=== PATIENT | male | born 1995 ===

== ENCOUNTER 2024-12-15 09:39 | Emergency (ER) | payer MEDICAID, SELFPAY ==
--- NOTE | ~2024-12-15 | US_ITS ---
CLINICAL HISTORY: RUQ pain US abdomen limited with color Doppler Comparison: None Findings: Visualized pancreas is normal. Tail obscured by bowel gas. Liver is normal in size and diffusely echogenic. Right lobe length 16.7 cm. No focal hepatic masses. Common duct 5.8 mm diameter. Gallbladder is physiologically distended. No gallstones, sludge or wall abnormalities. No gallbladder wall thickening. No pericholecystic fluid. No sonographic Naik sign. Right kidney measures, 10.3 cm in length. Normal cortical width and echotexture. No hydronephrosis calculus or mass. Impression: 1. Normal gallbladder. 2. Echogenic liver reflecting hepatic steatosis or diffuse hepatocellular disease. 3. Bowel gas obscures midline structures. This document has been electronically signed by: Cristiano العلي MD on 12/15/2024 12:19:56
[2024-12-15 09:46] VITALS: BP 138/85; PULSE 75; RESP 18; TEMP 36.8; O2SAT 100; BMI 35.3
[2024-12-15 10:03] LABS: MANUAL DIFF FLAG NO
[2024-12-15 10:04] LABS: Basophils Absolute Auto 0.1 X10*3/uL (0.0-0.2); Basophils Percent Auto 0.9 % (0-2); Eosinophils Absolute Auto 0.7 X10*3/uL (0.0-0.4); Eosinophils Percent Auto 7.4 % (0-4); Hematocrit 43.8 % (42.0-52.0); Hemoglobin 15.2 g/dl (14.0-18.0); Imm Gran Abs Auto 0.03 X10*3/uL (0.00-0.03); Imm Gran Pct Auto 0.3 % (0.0-0.4); Lymphocytes Absolute Auto 2.5 X10*3/uL (1.2-4.9); Lymphocytes Percent Auto 26.9 % (20-40); Mean Corpuscular HGB Conc 34.7 g/dl (31.0-36.0); Mean Corpuscular Hemoglobin 28.6 pg (27.0-33.0); Mean Corpuscular Volume 82.5 fL (80.0-98.0); Mean Platelet Volume 9.3 fL (9.4-12.4); Monocytes Absolute Auto 0.5 X10*3/uL (0.1-1.2); Monocytes Percent Auto 5.7 % (2-11); Neutrophils Absolute Auto 5.5 x10*3/uL (2.0-8.3); Neutrophils Percent Auto 58.8 % (45-73); Platelet Count 295 X10*3/uL (160-400); Red Blood Count 5.31 X10*6/uL (4.60-5.80); Red Cell Distribution Width 13.2 % (11.0-16.0); White Blood Count 9.4 X10*3/uL (4.8-10.8)
[2024-12-15 10:05] LABS: Appearance Urine Clear; Color Urine Yellow; Glucose Urine UA 100 mg/dL (Negative); Leukocyte Esterase Urine Negative (Negative); Nitrite Urine Negative (Negative); PH 6.5 (5.0-9.0); Specific Gravity - Urine 1.025 (1.005-1.025); Urine Blood Negative (Negative); Urine Ketones Negative (Negative); Urine Protein Negative (Neg-Trace)
[2024-12-15 10:25] LABS: Alanine Aminotransferase 108 U/L (0-40); Albumin Level 4.2 g/dL (3.5-5.0); Alkaline Phosphatase 66 U/L (39-117); Anion Gap 13 (12-20); Bilirubin Total 0.6 mg/dL (0.0-1.0); Blood Urea Nitrogen 14 mg/dL (9-16); Calcium 9.3 mg/dL (8.4-10.2); Carbon Dioxide 23 mmol/L (22-29); Chloride 106 mmol/L (96-108); Creatinine Clr Calc Pharmacy 127.3; Estimated Glomerular Filt Rate > 60; Glucose Random 138 mg/dL (60-115); Lipase 27 U/L (8-78); Potassium 3.9 mmol/L (3.3-5.1); Sodium 138 mmol/L (135-145); Total Protein 8.4 g/dL (6.5-8.0)
[2024-12-15 10:43] LABS: Aspartate Amino Transferase 43 U/L (5-37)
--- NOTE | 2024-12-15 11:30 | ED.ABDPAIN ---
HPI - Abdominal Pain General Chief Complaint: Abdominal Pain Stated Complaint: abd pain Time Seen by Provider: 12/15/24 11:29 Source: patient Mode of arrival: ambulatory Limitations: no limitations History of Present Illness ED Provider: Dafne Mcgovern PA-C HPI narrative: 29 yo male presents to the ER for evaluation of acute on chronic right sided abdominal pain. He states he has had intermittent RUQ pain for the last 8 months, on and off. He states for the last 1 week the pain has been increasing and persistent. At times it is 10/10. It is worse when he eats. He has had a couple episodes of vomiting in the last 1 week, no diarrhea. No urinary symptoms, no blood in his urine. MD elicited complaint: abdominal pain Pertinent past history: none Onset (ago): week(s) (1) Pain Consistency: constant Location: RUQ Severity: severe Pain scale (0-10): 9 Quality: stabbing Radiation: none Migration to: no migration Exacerbating factors: eating Relieving factors: nothing Context: history of similar episodes Associated symptoms: nausea and vomiting Related Data Previous Rx's ?Medication ?Instructions ?Recorded ondansetron 4 mg disintegrating 4 mg PO Q8H PRN nausea and 12/15/24 tablet vomiting #7 tabs oxycodone 5 mg tablet 5 mg PO Q8H PRN severe pain (scale 12/15/24 score 7-10) #5 tabs Allergies Allergy/AdvReac Type Severity Reaction Status Date / Time No Known Allergies Allergy Verified 12/15/24 09:48 Review of Systems Review of Systems Yes all other systems are reviewed and are negative Physical Exam ED Vital Signs: Vital Signs - 24 hr 12/15/24 09:46 12/15/24 13:30 Temperature 98.3 F 98.3 F Pulse Rate 75 75 Respiratory Rate 18 18 Blood Pressure 138/85 138/85 Pulse Oximetry 100 100 Oxygen Delivery Method Room Air Room Air BMI result Body Mass Index 35.3 Appearance: Alert. Oriented X3. No acute distress. Head: normocephalic, atraumatic. Eyes: Pupils equal, round and reactive to light. ENT: Pharynx normal. No tonsillar swelling or exudate. Neck: Normal inspection. Neck supple. CVS: Normal heart rate and rhythm. Pulses normal. Respiratory: No respiratory distress. Breath sounds normal. Abdomen: Soft, right upper quadrant tender to deep palpation, no rebound or guarding, normal active+BS x4 Skin: Skin warm and dry. Normal skin color. Normal skin turgor. No rashes. Extremities: No lower extremity edema. No joint swelling. Neuro/psych: Oriented X 3. grossly normal, nonfocal. CN II-XII intact. Normal speech and cognition. Medical Decision Making Medical Decision Making [facility] Narrative: 29 yo male presenting with acute on chronic RUQ pain, more constant and severe for the last week. worse after eating high suspicion for gallbladder etiology. no fevers or leukocytosis to suggest acute infection such as ascending cholangitis or acute cholecystitis LFTs are mildly elevated with a normal ALP, biliary obstruction less likely. lipase normal. RUQ US showing GB distention without stones, fluid or sludge, no wall thickening patient treated with oxycodone and zofran with near resolution of his pain etiology most likely biliary colic, he admits to poor diet with a lot fo greasy foods and cheese advised dietary changes, pain control, gen surgery follow up for evaluation of possible outpatient cholecystectomy Differential Diagnosis Differential Diagnoses: The differential diagnosis associated with the presentation includes Acute cholecystitis, biliary colic, ascending cholangitis, pancreatitis, pyelonephritis, musculoskeletal pain, indigestion Admission/Observation Consideration of admission/observation: Escalation of care including admission/observation considered Lab Data [facility] Lab Attestation statement: I reviewed the patient's lab results. Mildly elevated transaminases with normal alk-phos, normal lipase, no leukocytosis 12/15/24 09:58 12/15/24 09:58 Labs: Lab Results 12/15/24 Range/Units 09:58 WBC 9.4 (4.8-10.8) X10*3/uL RBC 5.31 (4.60-5.80) X10*6/uL Hgb 15.2 (14.0-18.0) g/dl Hct 43.8 (42.0-52.0) % MCV 82.5 (80.0-98.0) fL MCH 28.6 (27.0-33.0) pg MCHC 34.7 (31.0-36.0) g/dl RDW 13.2 (11.0-16.0) % Plt Count 295 (160-400) X10*3/uL MPV 9.3 L (9.4-12.4) fL Immature Gran % (Auto) 0.3 (0.0-0.4) % Neut % (Auto) 58.8 (45-73) % Lymph % (Auto) 26.9 (20-40) % Holmes % (Auto) 5.7 (2-11) % Eos % (Auto) 7.4 H (0-4) % Baso % (Auto) 0.9 (0-2) % Lymph # (Auto) 2.5 (1.2-4.9) X10*3/uL Holmes # (Auto) 0.5 (0.1-1.2) X10*3/uL Eos # (Auto) 0.7 H (0.0-0.4) X10*3/uL Baso # (Auto) 0.1 (0.0-0.2) X10*3/uL Abs Immat Gran (auto) 0.03 (0.00-0.03) X10*3/uL Absolute Neuts (auto) 5.5 (2.0-8.3) x10*3/uL Absolute Nucleated RBC 0.000 (0.0-0.012) X10*3/uL Nucleated RBC % (auto) 0.0 (0.0-0.2) /100WBC Sodium 138 (135-145) mmol/L Potassium 3.9 (3.3-5.1) mmol/L Chloride 106 (96-108) mmol/L Carbon Dioxide 23 (22-29) mmol/L Anion Gap 13 (12-20) BUN 14 (9-16) mg/dL Creatinine 0.96 (0.5-1.4) mg/dL Estim Creat Clear Calc 127.3 Estimated GFR > 60 Random Glucose 138 H (60-115) mg/dL Calcium 9.3 (8.4-10.2) mg/dL Total Bilirubin 0.6 (0.0-1.0) mg/dL AST 43 H (5-37) U/L ALT 108 H (0-40) U/L Alkaline Phosphatase 66 (39-117) U/L Total Protein 8.4 H (6.5-8.0) g/dL Albumin 4.2 (3.5-5.0) g/dL Lipase 27 (8-78) U/L Urine Color Yellow Urine Appearance Clear Urine pH 6.5 (5.0-9.0) Ur Specific [place] 1.025 (1.005-1.025) Urine Protein Negative (Neg-Trace) mg/dL Urine Glucose (UA) 100 H (Negative) mg/dL Urine Ketones Negative (Negative) mg/dL Urine Blood Negative (Negative) Urine Nitrite Negative (Negative) Ur Leukocyte Esterase Negative (Negative) Independent Interpretation I performed an independent interpretation of an: Ultrasound Interpretation: No gallstones seen Radiology Impression Discussion of test interpretation with radiology: I have reviewed the radiologist's reading. Independent Historian Clinical information obtained from an independent historian. History obtained from or confirmed by: Spouse Tests considered The following testing was considered but not selected: CT scan of the abdomen was considered however ultrasound is the preferred modality of imaging when biliary etiology is the primary concern Prescription Management I considered prescription management with: Pain Medication and Antibiotic Chronic Conditions Patient?s care impacted by: Other (Obesity) Medications Administered Discontinued Medications Generic Name Dose Route Start Last Admin Trade Name Freq PRN Reason Stop Dose Admin Ondansetron HCl 4 mg 12/15/24 11:42 12/15/24 12:02 Ondansetron Odt 4 Mg Tab.Rapdis TRANSLINGU 12/15/24 11:43 4 mg ONCE ONE Administration Oxycodone HCl 5 mg 12/15/24 11:42 12/15/24 12:02 Oxycodone Hcl Immed Release 5 Mg Tablet PO 12/15/24 11:43 5 mg ONCE ONE Administration Critical Care Time Critical Care Time Critical Care Time: No Discharge Plan Discharge Clinical Impression: Biliary colic Patient Disposition: Home, Self-Care Instructions: Biliary Colic (ED) Additional Instructions: Recommend cutting out all greasy, fatty foods, cut back on dairy high in fat such as cheese. Eat 4 to 6 small meals and snacks each day instead of three large meals. Choose skim or low-fat milk, yogurt, cheese, other milk products, or fortified soy beverage. Choose lean meats. Cut off all fat you can see.Eat poultry, like chicken, duck, and turkey without the skin.Many types of fish, such as salmon, grant trout, tuna, and jernigan, provide healthy omega-3 fat. But, avoid fish canned in oil, such as sardines in olive oil.Bake, broil, or grill meats, poultry, or fish instead of frying them in butter or fat. Eat a variety of vegetables and fruits. These are high in nutrition and low in fat. Take the prescribed medications as directed. Recommend a clear liquid diet for the weekend, slowly advance as tolerated. Recommend following up with General surgery for evaluation of an outpatient gallbladder removal surgery. If you develop new or worsening symptoms call 911 or come back to the ER for further evaluation. Prescriptions: New ondansetron 4 mg tablet,disintegrating 4 mg PO Q8H PRN (Reason: nausea and vomiting) Qty: 7 0RF oxycodone 5 mg tablet 5 mg PO Q8H PRN (Reason: severe pain (scale score 7-10)) Qty: 5 0RF Rx Instructions: Partial Fill upon patient request. Referrals: [facility] General Surgeons [Provider Group] Interventions: ED Discharge Assessment Last Done: 12/15/24 13:30 Discharge Date/Time: 12/15/24 13:55 Print Language: Mauritanian
[2024-12-15] MEDS: oxyCODONE HCl Immed Release 5 MG TABLET PO (12:02)
[2024-12-15] MEDS: Ondansetron ODT 4 MG TAB.RAPDIS TRANSLINGU (12:02)
[2024-12-15 13:30] VITALS: BP 138/85; PULSE 75; RESP 18; TEMP 36.8; O2SAT 100
== END 2024-12-15 13:55 | disposition home or self-care (01) ==
PROVIDERS: Emergency Provider Emergency Medicine
DX: K80.50 Calculus of bile duct without cholangitis or cholecystitis without obstruction (principal); R10.11 Right upper quadrant pain; R11.2 Nausea with vomiting, unspecified
CPT/HCPCS: 36415; 76705; 80053; 81003; 83690; 85025; 99284

== ENCOUNTER → 2024-12-15 11:35 | Outpatient (BNV) | payer MEDICAID, SELFPAY | PROVIDERS: Emergency Provider Emergency Medicine; Visit Provider Radiology Diagnostic Radiology | DX: R10.811 Right upper quadrant abdominal tenderness (principal); K76.0 Fatty (change of) liver, not elsewhere classified | CPT/HCPCS: 76705 ==

== ENCOUNTER 2024-12-25 05:01 | Emergency (ER) | payer MEDICAID, OTHER, SELFPAY ==
--- NOTE | ~2024-12-25 | CT_ITS ---
EXAMINATION: CT ABDOMEN PELVIS WITH IV CONTRAST HISTORY: right mid abd tenderness COMPARISON: There are no prior studies for comparison. TECHNIQUE: CT scan of the abdomen and pelvis was performed following administration of 85 mL Omnipaque 350 using standard departmental protocol. Coronal and sagittal reformatted images were generated and reviewed. Oral contrast material was not administered at the request of the referring physician. This CT exam was performed with one or more of the following dose reduction techniques: automated exposure control, adjustment of the mA and/or kV according to patient size, use of iterative reconstruction technique. DLP: 797 mGy-cm FINDINGS: LOWER CHEST: The visualized lung bases are clear. There is no pleural effusion. CARDIOVASCULATURE: The heart is normal in size. There is no pericardial effusion. LIVER: The liver is normal in size and contour. The liver demonstrates diffusely decreased attenuation, consistent with steatosis. The hepatic and portal veins are patent. GALLBLADDER / BILE DUCTS: The gallbladder is unremarkable. There is no intra or extrahepatic biliary ductal dilatation. SPLEEN: The spleen is normal in size. No focal splenic lesion is identified. PANCREAS: The pancreas is unremarkable in appearance. ADRENAL GLANDS: Within normal limits. KIDNEYS/RETROPERITONEUM: No renal calculi are identified. There is no hydronephrosis. No renal masses are identified. LYMPH NODES: No abdominal or pelvic lymphadenopathy. VASCULATURE: The abdominal aorta is normal in caliber. MESENTERY/PERITONEUM: No free fluid. No masses. There is no free intraperitoneal gas. STOMACH: The stomach is collapsed, limiting evaluation. SMALL BOWEL: The small bowel is normal in caliber. COLON: The colon is unremarkable. APPENDIX: Normal. URINARY BLADDER/PELVIC ORGANS: The urinary bladder is unremarkable. The prostate is normal in size. BONES / SOFT TISSUES: No suspicious bony or soft tissue abnormalities. CT/CT abdomen pelvis w IV con IMPRESSION: Hepatic steatosis. Otherwise unremarkable contrast-enhanced CT of the abdomen and pelvis. Electronically signed by: León Ford MD 12/25/2024 09:25 AM EDT
[2024-12-25 05:06] VITALS: BP 135/85; PULSE 75; RESP 16; TEMP 36.6; O2SAT 100; BMI 27.8
[2024-12-25 05:24] LABS: Basophils Absolute Auto 0.1 X10*3/uL (0.0-0.2); Basophils Percent Auto 1.2 % (0-2); Eosinophils Absolute Auto 1.2 X10*3/uL (0.0-0.4); Eosinophils Percent Auto 12.2 % (0-4); Imm Gran Abs Auto 0.02 X10*3/uL (0.00-0.03); Imm Gran Pct Auto 0.2 % (0.0-0.4); Lymphocytes Absolute Auto 3.5 X10*3/uL (1.2-4.9); Lymphocytes Percent Auto 35.1 % (20-40); MANUAL DIFF FLAG NO; Mean Corpuscular HGB Conc 34.9 g/dl (31.0-36.0); Mean Corpuscular Hemoglobin 29.1 pg (27.0-33.0); Mean Corpuscular Volume 83.5 fL (80.0-98.0); Mean Platelet Volume 9.4 fL (9.4-12.4); Monocytes Absolute Auto 0.8 X10*3/uL (0.1-1.2); Monocytes Percent Auto 7.6 % (2-11); Neutrophils Absolute Auto 4.4 x10*3/uL (2.0-8.3); Neutrophils Percent Auto 43.7 % (45-73); Platelet Count 291 X10*3/uL (160-400); Red Blood Count 5.15 X10*6/uL (4.60-5.80); Red Cell Distribution Width 13.1 % (11.0-16.0); White Blood Count 10.1 X10*3/uL (4.8-10.8)
[2024-12-25 05:52] LABS: Alanine Aminotransferase 56 U/L (0-40); Albumin Level 4.1 g/dL (3.5-5.0); Alkaline Phosphatase 65 U/L (39-117); Anion Gap 12 (12-20); Aspartate Amino Transferase 27 U/L (5-37); Bilirubin Direct < 0.2 mg/dL (0.0-0.5); Bilirubin Total 0.2 mg/dL (0.0-1.0); Blood Urea Nitrogen 13 mg/dL (9-16); Calcium 8.9 mg/dL (8.4-10.2); Carbon Dioxide 23 mmol/L (22-29); Chloride 109 mmol/L (96-108); Creatinine Clr Calc Pharmacy 145.6; Estimated Glomerular Filt Rate > 60; Glucose Random 110 mg/dL (60-115); Lipase 24 U/L (8-78); Potassium 4.1 mmol/L (3.3-5.1); Sodium 140 mmol/L (135-145); Total Protein 7.8 g/dL (6.5-8.0)
--- NOTE | 2024-12-25 08:00 | ED.GENADULT ---
HPI - General Adult General Chief complaint: Abdominal Pain Stated complaint: abd pain Time Seen by Provider: 12/25/24 07:59 Source: patient, RN notes reviewed, old records reviewed and certified court interpreter Mode of arrival: ambulatory Limitations: language barrier History of Present Illness ED Provider: Monalisa [facility] narrative: Patient is a 29-year-old Slovak speaking male presenting with complaint of right mid abdominal pain which has been ongoing intermittently for the past 8 months, but recently worsened over the past few weeks. He was seen in this ED on 12/15 for same complaint, diagnosed with biliary colic. States symptoms have not changed at all since discharge home. Pain is worse after eating. Denies fevers, nausea, vomiting, diarrhea. Has not had any follow up since last ED visit. MD complaint: abdominal pain Onset (ago): month(s) Location: abdomen Radiation: non-radiation Severity: severe Quality: sharp Pain Consistency: intermittent Exacerbating factors: eating Treatments prior to arrival: other Related Data Previous Rx's ?Medication ?Instructions ?Recorded ondansetron 4 mg disintegrating 4 mg PO Q8H PRN nausea and 12/15/24 tablet vomiting #7 tabs oxycodone 5 mg tablet 5 mg PO Q8H PRN severe pain (scale 12/15/24 score 7-10) #5 tabs naproxen 500 mg tablet 500 mg PO BID #28 tabs 12/25/24 Allergies Allergy/AdvReac Type Severity Reaction Status Date / Time No Known Allergies Allergy Verified 12/25/24 05:07 Review of Systems Review of Systems: As per HPI Yes all other systems are reviewed and are negative Constitutional: Constitutional: Reports as per HPI [facility] Social History Social History Smoked in Last 30 Days: No Use of substances other than those prescribed or required for medical reasons: No Advance Directives: No Advance Directives Information Provided: No Do you have a plan to hurt others: No Plan Physical Exam ED Vital Signs: Vital Signs - 24 hr 12/25/24 05:06 12/25/24 08:33 12/25/24 08:34 Temperature 97.8 F 98.6 F Pulse Rate 75 60 Respiratory Rate 16 18 Blood Pressure 135/85 133/92 H 133/92 H Pulse Oximetry 100 98 Oxygen Delivery Method Room Air Room Air BMI result Body Mass Index 27.8 Vital signs have been reviewed and appear to be correct. Blood pressure normal. Heart rate normal. Respiratory rate normal. Temperature normal. Oxygen saturation normal. Const General: cooperative, healthy appearing and no acute distress Orientation/consciousness: oriented to person, oriented to place, oriented to time and patient oriented x3 Limitations: no limitations HENTX Head: Yes normocephalic and Yes atraumatic Ears: external ears normal General nose exam: Normal external nose present Face and sinus: Yes face symmetric Mouth: oropharynx normal and moist mucous membranes Throat: Yes uvula midline Eyes Pupils: Equal, round and reactive pupils present Neck Neck: Yes normal visual inspection and Yes supple Resp Effort & Inspection: normal respiratory effort and able to speak in complete sentences Auscultation: clear to auscultation bilaterally Cardio Rate: regular rate Rhythm: regular rhythm Heart sounds: S1 normal heart sound present and S2 normal heart sound present GI Palpation (GI): Soft to palpation and Tenderness to palpation present (GI) (right mid abdomen tenderness) Naik's sign negative Auscultation: normoactive bowel sounds General: Yes no CVA tenderness Back/Spine/Pelvis Back: no CVA tenderness Skin General skin exam: elasticity normal and turgor normal Neuro General: oriented to person, oriented to place, oriented to time, patient oriented x3, moves all extremities, no focal motor deficits and CN's II-XI intact bilaterally Cranial nerves: Yes Equal, round and reactive pupils present Cognition (Neuro): normal cognition Extrem General: Yes full ROM, Yes no pedal edema and Yes no calf tenderness Psych Mental Status: mental status grossly normal Affect: normal affect Thought process: Normal thought process present Medications Administered Discontinued Medications Generic Name Dose Route Start Last Admin Trade Name Raven PRN Reason Stop Dose Admin Iohexol 100 ml 12/25/24 09:11 12/25/24 09:11 Iohexol 350 Mg/Ml 100 Ml Infus..Btl IV 12/25/24 09:12 85 ml ONCE ONE Administration Morphine Sulfate 4 mg 12/25/24 08:14 12/25/24 08:32 Morphine Sulfate 4 Mg/Ml Cartridge IVPUSH 12/25/24 08:15 4 mg ONCE ONE Administration Protocol Ondansetron HCl 4 mg 12/25/24 08:14 12/25/24 08:32 Ondansetron Hcl 4 Mg/2 Ml Vial IVPUSH 12/25/24 08:15 4 mg ONCE ONE Administration Medical Decision Making Medical Decision Making MDM Narrative: Patient is a 29-year-old Slovak speaking male presenting with complaint of right mid abdominal pain which has been ongoing intermittently for the past 8 months, but recently worsened over the past few weeks. On exam patient is awake, A+Ox3, VS WNL, afebrile, normal neurological exam without focal deficits, physical exam findings as above. Given reported symptoms and physical exam findings, initial differential includes but is not limited to biliary colic, diverticulitis, gastritis. Less likely appendicitis, cholecystitis. Labs notable for no leukocytosis, arthur elevated ALT, improved from most recent visit. CT A/P notable for hepatic steatosis, no acute abnormalities to explain patient's pain. My interpretation is in agreement with the radiologist's interpretation. Results discussed with patient and all questions answered. Will refer to GI for further evaluation. Will send prescription for naproxen. Return precautions discussed at bedside. Patient verbalized understanding of and agreement with plan. In-person certified court interpreter was utilized for all interactions, assessments, and discussions. Differential Diagnosis Differential Diagnoses: The differential diagnosis associated with the presentation includes As per [facility]. Admission/Observation Consideration of admission/observation: Escalation of care including admission/observation considered Patient would have been admitted to the hospital had their work up had any findings where hospital admission was appropriate and their clinical presentation warranted hospital admission. Lab Data [facility] Lab Attestation statement: I reviewed the patient's lab results. As per [facility] 12/25/24 05:18 12/25/24 05:18 Labs: Lab Results 12/25/24 Range/Units 05:18 WBC 10.1 (4.8-10.8) X10*3/uL RBC 5.15 (4.60-5.80) X10*6/uL Hgb 15.0 (14.0-18.0) g/dl Hct 43.0 (42.0-52.0) % MCV 83.5 (80.0-98.0) fL MCH 29.1 (27.0-33.0) pg MCHC 34.9 (31.0-36.0) g/dl RDW 13.1 (11.0-16.0) % Plt Count 291 (160-400) X10*3/uL MPV 9.4 (9.4-12.4) fL Immature Gran % (Auto) 0.2 (0.0-0.4) % Neut % (Auto) 43.7 L (45-73) % Lymph % (Auto) 35.1 (20-40) % Wright % (Auto) 7.6 (2-11) % Eos % (Auto) 12.2 H (0-4) % Baso % (Auto) 1.2 (0-2) % Lymph # (Auto) 3.5 (1.2-4.9) X10*3/uL Wright # (Auto) 0.8 (0.1-1.2) X10*3/uL Eos # (Auto) 1.2 H (0.0-0.4) X10*3/uL Baso # (Auto) 0.1 (0.0-0.2) X10*3/uL Abs Immat Gran (auto) 0.02 (0.00-0.03) X10*3/uL Absolute Neuts (auto) 4.4 (2.0-8.3) x10*3/uL Absolute Nucleated RBC 0.000 (0.0-0.012) X10*3/uL Nucleated RBC % (auto) 0.0 (0.0-0.2) /100WBC Sodium 140 (135-145) mmol/L Potassium 4.1 (3.3-5.1) mmol/L Chloride 109 H (96-108) mmol/L Carbon Dioxide 23 (22-29) mmol/L Anion Gap 12 (12-20) BUN 13 (9-16) mg/dL Creatinine 0.86 (0.5-1.4) mg/dL Estim Creat Clear Calc 145.6 Estimated GFR > 60 Random Glucose 110 (60-115) mg/dL Calcium 8.9 (8.4-10.2) mg/dL Total Bilirubin 0.2 (0.0-1.0) mg/dL Direct Bilirubin < 0.2 (0.0-0.5) mg/dL AST 27 (5-37) U/L ALT 56 H (0-40) U/L Alkaline Phosphatase 65 (39-117) U/L Total Protein 7.8 (6.5-8.0) g/dL Albumin 4.1 (3.5-5.0) g/dL Lipase 24 (8-78) U/L Independent Interpretation I performed an independent interpretation of an: CT Scan Interpretation: CT A/P notable for hepatic steatosis, no acute abnormalities. Radiology Impression Discussion of test interpretation with radiology: I have reviewed the radiologist's reading. Radiologist Impression: EXAMINATION: CT ABDOMEN PELVIS WITH IV CONTRAST HISTORY: right mid abd tenderness COMPARISON: There are no prior studies for comparison. TECHNIQUE: CT scan of the abdomen and pelvis was performed following administration of 85 mL Omnipaque 350 using standard departmental protocol. Coronal and sagittal reformatted images were generated and reviewed. Oral contrast material was not administered at the request of the referring physician. This CT exam was performed with one or more of the following dose reduction techniques: automated exposure control, adjustment of the mA and/or kV according to patient size, use of iterative reconstruction technique. DLP: 797 mGy-cm FINDINGS: LOWER CHEST: The visualized lung bases are clear. There is no pleural effusion. CARDIOVASCULATURE: The heart is normal in size. There is no pericardial effusion. LIVER: The liver is normal in size and contour. The liver demonstrates diffusely decreased attenuation, consistent with steatosis. The hepatic and portal veins are patent. GALLBLADDER / BILE DUCTS: The gallbladder is unremarkable. There is no intra or extrahepatic biliary ductal dilatation. SPLEEN: The spleen is normal in size. No focal splenic lesion is identified. PANCREAS: The pancreas is unremarkable in appearance. ADRENAL GLANDS: Within normal limits. KIDNEYS/RETROPERITONEUM: No renal calculi are identified. There is no hydronephrosis. No renal masses are identified. LYMPH NODES: No abdominal or pelvic lymphadenopathy. VASCULATURE: The abdominal aorta is normal in caliber. MESENTERY/PERITONEUM: No free fluid. No masses. There is no free intraperitoneal gas. STOMACH: The stomach is collapsed, limiting evaluation. SMALL BOWEL: The small bowel is normal in caliber. COLON: The colon is unremarkable. APPENDIX: Normal. URINARY BLADDER/PELVIC ORGANS: The urinary bladder is unremarkable. The prostate is normal in size. BONES / SOFT TISSUES: No suspicious bony or soft tissue abnormalities. CT/CT abdomen pelvis w IV con IMPRESSION: Hepatic steatosis. Otherwise unremarkable contrast-enhanced CT of the abdomen and pelvis. External Record Review External record reviewed: Inpatient record, Office record and Outpatient record Prescription Management I considered prescription management with: Pain Medication Discharge Plan Discharge Clinical Impression: Hepatic steatosis, Biliary colic Patient Disposition: Home, Self-Care Instructions: Biliary Colic (ED), Liver Disease Diet (DC), Non-Alcoholic Fatty Liver Disease (ED) Additional Instructions: You have been evaluated in the emergency department today for abdominal pain. Your evaluation did not show evidence of medical conditions requiring emergent intervention at this time. Your CT scan showed a fatty liver. Please schedule an appointment with your primary care physician. We are also referring you to the education and training coordinator for further evaluation of your symptoms. Call their office to schedule an appointment. You are being prescribed naproxen for pain, take this as prescribed. Return to the emergency department if you experience worsening or uncontrolled pain, fevers 100.4? F or greater, recurrent vomiting, inability to tolerate food or fluids by mouth, bloody stools or vomit, black or tarry stools, or any other concerning symptoms. Prescriptions: New naproxen 500 mg tablet 500 mg PO BID Qty: 28 0RF No Action ondansetron 4 mg tablet,disintegrating 4 mg PO Q8H PRN (Reason: nausea and vomiting) Qty: 7 0RF oxycodone 5 mg tablet 5 mg PO Q8H PRN (Reason: severe pain (scale score 7-10)) Qty: 5 0RF Rx Instructions: Partial Fill upon patient request. Referrals: [facility] [place]Provider Group] - 1 week (biliary colic and hepatic steatosis, right sided abd pain x 8 months) [facility] [Provider Group] - 1 week (biliary colic) Print Language: Slovak
[2024-12-25] MEDS: ondansetron HCL 4 MG/2 ML VIAL IVPUSH (08:32)
[2024-12-25] MEDS: Morphine Sulfate 4 MG/ML CARTRIDGE IVPUSH (08:32)
[2024-12-25 08:33] VITALS: BP 133/92; PULSE 60; RESP 18; TEMP 37; O2SAT 98
[2024-12-25 08:34] VITALS: BP 133/92
[2024-12-25] MEDS: iohexoL 350 MG/ML 100 ML INFUS..BTL IV (09:11)
[2024-12-25 10:46] VITALS: BP 132/80; PULSE 72; RESP 16; TEMP 36.8; O2SAT 96
== END 2024-12-25 10:46 | disposition home or self-care (01) ==
PROVIDERS: Emergency Provider Emergency Medicine Emergency Medical Services
DX: K76.0 Fatty (change of) liver, not elsewhere classified (principal); K80.50 Calculus of bile duct without cholangitis or cholecystitis without obstruction; R10.9 Unspecified abdominal pain
CPT/HCPCS: 36415; 74177; 80053; 82248; 83690; 85025; 96374; 96375; 99284; J2270; J2405; Q9967

== ENCOUNTER → 2024-12-25 08:14 | Outpatient (BNV) | payer MEDICAID, SELFPAY | PROVIDERS: Emergency Provider Emergency Medicine Emergency Medical Services; Visit Provider Radiology Diagnostic Radiology | DX: K76.0 Fatty (change of) liver, not elsewhere classified (principal) | CPT/HCPCS: 74177 ==

== ENCOUNTER 2025-02-14 04:49 | Emergency (ER) | payer MEDICAID, SELFPAY ==
--- NOTE | ~2025-02-14 | CT_ITS ---
EXAMINATION: CT ABDOMEN PELVIS WITH IV CONTRAST HISTORY: rt lower quadrant pain COMPARISON: Comparison is made with the prior examination dated 12/25/2024. TECHNIQUE: CT scan of the abdomen and pelvis was performed following administration of 85 mL Omnipaque 350 using standard departmental protocol. Coronal and sagittal reformatted images were generated and reviewed. Oral contrast material was not administered at the request of the referring physician. This CT exam was performed with one or more of the following dose reduction techniques: automated exposure control, adjustment of the mA and/or kV according to patient size, use of iterative reconstruction technique. DLP: 590 mGy-cm FINDINGS: LOWER CHEST: The visualized lung bases are clear. There is no pleural effusion. CARDIOVASCULATURE: The heart is normal in size. There is no pericardial effusion. LIVER: The liver is normal in size and contour, but demonstrates diffusely decreased attenuation, consistent with steatosis. No liver mass is identified. The hepatic and portal veins are patent. GALLBLADDER / BILE DUCTS: The gallbladder is unremarkable. There is no intra or extrahepatic biliary ductal dilatation. SPLEEN: The spleen is normal in size. No focal splenic lesion is identified. PANCREAS: The pancreas is unremarkable in appearance. ADRENAL GLANDS: Within normal limits. KIDNEYS/RETROPERITONEUM: No renal calculi are identified. There is no hydronephrosis. No renal masses are identified. LYMPH NODES: There are scattered lymph nodes in the right lower quadrant which are not enlarged by CT criteria. VASCULATURE: The abdominal aorta is normal in caliber. MESENTERY/PERITONEUM: No free fluid. No masses. There is no free intraperitoneal gas. STOMACH: The stomach is collapsed, limiting evaluation. SMALL BOWEL: The small bowel is normal in caliber. COLON: There is mild wall thickening of the ascending colon, compatible with colitis. The remainder of the colon is unremarkable. APPENDIX: Normal. URINARY BLADDER/PELVIC ORGANS: The urinary bladder is collapsed, limiting evaluation. The prostate is normal in size. BONES / SOFT TISSUES: No suspicious bony or soft tissue abnormalities. CT/CT abdomen pelvis w IV con IMPRESSION: Mild wall thickening of the ascending colon, compatible with colitis. Electronically signed by: León Ford MD 02/14/2025 08:24 AM EDT
[2025-02-14 04:52] VITALS: PULSE 63; RESP 16; TEMP 36.6; O2SAT 100; BMI 27.8
--- OUTSIDE RECORDS SUMMARY | 2025-02-14 05:00 | XMS_ITS | Clinical Summary ---
Author Organization [facility] Address [address] [place] [address] Phone Care Team Providers Care Transfer Knitter Name Role Phone Physician, Pcp Unknown Primary Care Provider Brianne vailable Allergies No known active allergies Encounters Date Type Department Care Team Description 01/01/2025 10:42 PM EDT - 01/02/2025 4:11 AM EDT [facility] Emergency [address] [place] [address] Abdominal pain, generalized (Primary Dx) Discharge Disposition: Home or Self Care from Last 3 Months Social History Tobacco Use Types Packs/Day Years Used Date Smoking Tobacco: Never Smokeless Tobacco: Never Tobacco Cessation:Counseling Given: Not Answered Alcohol Use Standard Drinks/Week Comments Never 0 (1 standard drink = 0.6 oz pur e alcohol) Sex and Gender Information Value Date Recorded Sex Assigned at Male 01/02/2025 12:34 AM EDT Legal Sex Male 10:19 PM EDT Gender Identity Male 01/02/2025 12:34 AM EDT Sexual Orientation Choose not to disclose 2024 12:34 AM EDT Obstetrics History Last Filed Vital Signs Vital Sign Reading Time Taken Comments Blood Pressure 124/87 01/02/2025 1:07 AM EDT Pulse 65 01/02/2025 1:07 AM EDT Temperature 36.8 ??C (98.2 ??F) 01/02/2025 1:07 AM ED T Respiratory Rate 18 01/02/2025 1:07 AM EDT Oxygen Saturation 100% 01/02/2025 1:07 AM EDT Inhaled Oxygen Concentration - - Weight 90 kg (198 lb 6.6 oz) 01/01/2025 10:24 PM EDT Height 180 cm (5' 10.87 ) 01/01/2025 10:24 PM ED T Body Mass Index 27.78 01/01/2025 10:24 PM EDT Plan of Treatment Health Maintenance Due Date Last Done Comments DTaP,Tdap,and Td Vaccines (1 - Tdap) 2016 Hepatitis B Vaccines (1 of 3 - 19+ 3-dose series) 2016 COVID-19 Vaccine (1 - 2023-2 5 season) 2024 Depression Screening 01/02/2025 HIV Screening 01/02/2025 Hepatitis C Screening 01/02/2025 Social Influencers of Health Screening 01/02/2025 Influenza Vaccine (Season Ended) 2025 HIB Vaccines Aged Out No longer eligi ble based on patient's age to complete this topic HPV Vaccines Aged Out No longer eligi ble based on patient's age to complete this topic Hepatitis A Vaccines Aged Out No long er eligible based on patient's age to complete this topic IPV Vaccines Aged Out No longer eligi ble based on patient's age to complete this topic MMR Vaccines Aged Out No longer eligi ble based on patient's age to complete this topic Meningococcal ACWY Vaccine Aged Out N o longer eligible based on patient's age to complete this topic Meningococcal B Vaccine Aged Out No l onger eligible based on patient's age to complete this topic Pneumococcal Vaccine: Pediat rics (0 to 5 Years) and At-Risk Patients (6 to 64 Years) Aged Out No longer eligible b ased on patient's age to complete this topic RSV Immunization Patients Un eduard 20 months Aged Out No longer eligible b ased on patient's age to complete this topic Varicella Vaccines Aged Out No longer eligible based on patient's age to complete this topic Procedures Procedure Name Priority Date/Time Associated Diagnosis Comments US ABDOMEN LIMITED STAT 01/02/2025 1: 00 AM EDT CBC WITH AUTO DIFFERENTIAL STAT 01/01/2025 10:38 PM EDT LIPASE STAT 01/01/2025 10:38 PM EDT COMPREHENSIVE METABOLIC PANEL STAT 01/01/2025 10:38 PM EDT CBC AND DIFFERENTIAL STAT 01/01/2025 10:38 PM EDT from Last 3 Months Results * US Abdomen Limited (01/02/2025 1:00 AM EDT) Anatomical Region Laterality Modality Body Ultrasound 01/02/2025 1:33 AM EDT Impressions 01/02/2025 1:33 AM EDT 1. No gallstones or gallbladder wall thickening to suggest acute cholecystitis. This document has been electronically signed by: Josseline Hathaway MD on 01/02/2025 01:33:04 Narrative 01/02/2025 1:33 AM EDT INDICATION: RUQ gallbladder US Exam: Limited right upper quadrant abdominal ultrasound Comparison: None Clinical History: Pain Findings: Selected images from a right upper quadrant ultrasound are provided for interpretation The liver is echogenic which may be reflective of fatty infiltration. No liver lesions are seen. Portal vein is patent with hepatopetal flow. Gallbladder is decompressed. No gallstones within the gallbladder. Gallbladder wall is not thickened at 3 mm. No pericholecystic fluid. Negative sonographic Naik sign The common bile duct is not enlarged at 3 mm. No choledocholithiasis. Pancreas was unable to be visualized secondary to bowel gas. Right kidney does not demonstrate any hydronephrosis or stones. Procedure Note Josseline Hathaway MD - 01/02/2025 INDICATION: RUQ gallbladder US Exam: Limited right upper quadrant abdominal ultrasound Comparison: None Clinical History: Pain Findings: Selected images from a right upper quadrant ultrasound are provided for interpretation The liver is echogenic which may be reflective of fatty infiltration. No liver lesions are seen. Portal vein is patent with hepatopetal flow. Gallbladder is decompressed. No gallstones within the gallbladder. Gallbladder wall is not thickened at 3 mm. No pericholecystic fluid. Negative sonographic Naik sign The common bile duct is not enlarged at 3 mm. No choledocholithiasis. Pancreas was unable to be visualized secondary to bowel gas. Right kidney does not demonstrate any hydronephrosis or stones. IMPRESSION: 1. No gallstones or gallbladder wall thickening to suggest acute cholecystitis. This document has been electronically signed by: Josseline Hathaway MD on 01/02/2025 01:33:04 Theresa [facility] US PROCEDURES Final Result * (ABNORMAL) CBC auto differential (01/01/2025 10:38 PM EDT) [facility] WBC 10.0 4.8 - 10.8 K/mcL LAB HEMETOLOGY METHOD 01/01/2025 10:54 PM EDT [facility] RBC 5.10 4.50 - 5.50 M/mcL LAB HEMETOLOGY METHOD 01/01/2025 10:54 PM EDT [facility] Hemoglobin 14.5 13.5 - 17.5 g/dL LAB HEMETOLOGY METHOD 01/01/2025 10:54 [facility] Hematocrit 43.3 42.0 - 54.0 % LAB HEMETOLOGY METHOD 01/01/2025 10:54 PM EDT [facility] MCV 85.4 79.0 - 98.0 FL LAB HEMETOLOGY METHOD 01/01/2025 10:54 PM EDT [facility] MCH 28.6 27.0 - 32.0 pcg LAB HEMETOLOGY METHOD 01/01/2025 10:54 [facility] MCHC 33.5 32.0 - 37.0 g/dL LAB HEMETOLOGY METHOD 01/01/2025 10:54 PM EDT [facility] RDW 12.9 11.0 - 15.0 % LAB HEMETOLOGY METHOD 01/01/2025 10:54 [facility] Platelets 277 130 - 400 K/mcL LAB HEMETOLOGY METHOD 01/01/2025 10:54 [facility] MPV 10.0 7.0 - 11.0 FL LAB HEMETOLOGY METHOD 01/01/2025 10:54 PM EDT [facility] NRBC 0.0 <1.0 % LAB HEMETOLOGY METHOD 01/01/2025 10:54 PM EDT [facility] NRBC Absolute 0.00 <0.10 K/mcL LAB HEMETOLOGY METHOD 01/01/2025 10:54 PM [facility] Neutrophils Relative 51.9 % LAB HEMETOLOGY METHOD 01/01/2025 10:54 PM [facility] Lymphocytes Relative 30.1 % LAB HEMETOLOGY METHOD 01/01/2025 10:54 [facility] Monocytes Relative 6.5 % LAB HEMETOLOGY METHOD 01/01/2025 10:54 PM [facility] Eosinophils Relative 10.2 % LAB HEMETOLOGY METHOD 01/01/2025 10:54 PM [facility] Basophils Relative 1.1 % LAB HEMETOLOGY METHOD 01/01/2025 10:54 PM [facility] Immature Granulocytes Relative 0.2 % LAB HEMETOLOGY METHOD 01/01/2025 10:54 PM [facility] Neutrophils Absolute 5.19 1.50 - 7.00 K/mcL LAB HEMETOLOGY METHOD 01/01/2025 10:54 PM [facility] Lymphocytes Absolute 3.01 1.00 - 5.00 K/mcL LAB HEMETOLOGY METHOD 01/01/2025 10:54 [facility] Monocytes Absolute 0.65 0.20 - 1.00 K/mcL LAB HEMETOLOGY METHOD 01/01/2025 10:54 PM [facility] Eosinophils Absolute 1.02(H) 0.00 - 0.50 K/mcL LAB HEMETOLOGY METHOD 01/01/2025 10:54 PM [facility] Basophils Absolute 0.11 0.00 - 0.20 K/mcL LAB HEMETOLOGY METHOD 01/01/2025 10:54 PM EDT [facility] Immature Granulocytes Absolute 0.02 0.00 - 0.03 K/mcL LAB HEMETOLOGY METHOD 01/01/2025 10:54 PM EDT [facility] Blood Venous blood specimen / Unknown Venipuncture / Unknown 01/01/2025 10:38 PM EDT 01/01/2025 10:46 PM EDT Chetan Smith MD LAB BLOOD ORDERABLES Final Res ult Performing Organization Address [facility]/ZIP Co de Phone Number [facility] [address] [place] [address], [place] [phone] * Lipase (01/01/2025 10:38 PM EDT) Lipase 45 13 - 75 unit/L LAB CHEMISTRY METHOD 01/01/2025 11:19 PM EDT [facility] Blood Venous blood specimen / Unknown Venipuncture / Unknown 01/01/2025 10:38 PM EDT 01/01/2025 10:46 PM EDT us Chetan Smith MD LAB BLOOD ORDERABLES Final Res ult Performing Organization Address [facility]/ZIP Co de Phone Number [facility] [address] [place] [address], [place] [phone] * (ABNORMAL) Comprehensive metabolic panel (01/01/2025 10:38 PM EDT) Sodium 140 133 - 145 mmol/L LAB CHEMISTRY METHOD 01/01/2025 11:19 PM EDT [facility] Potassium 3.9 3.5 - 5.5 mmol/L LAB CHEMISTRY METHOD 01/01/2025 11:19 PM EDT [facility] Chloride 104 96 - 110 mmol/L LAB CHEMISTRY METHOD 01/01/2025 11:19 PM EDT [facility] CO2 29 21 - 32 mmol/L LAB CHEMISTRY METHOD 01/01/2025 11:19 PM [facility] Anion Gap 7 3 - 11 LAB CHEMISTRY METHOD 01/01/2025 11:19 PM [facility] Glucose 102(H) 70 - 100 mg/dL LAB CHEMISTRY METHOD 01/01/2025 11:19 PM [facility] BUN 21 5 - 25 mg/dL LAB CHEMISTRY METHOD 01/01/2025 11:19 PM [facility] Creatinine 0.94 0.70 - 1.30 mg/dL LAB CHEMISTRY METHOD 01/01/2025 11:19 PM [facility] eGFR 114 >=60 mL/min/1. 73m2 LAB CHEMISTRY METHOD 01/01/2025 11:19 PM [facility] Comment:Calculation based on the??Chronic Kidney Disease Epidemiology Collaboration (CKD-EPI) equation refit??without adjustment for race. BUN/Creatinine Ratio 22.3 LAB CHEMISTRY METHOD 01/01/2025 11:19 PM [facility] Calcium 9.1 8.5 - 10.5 mg/dL LAB CHEMISTRY METHOD 01/01/2025 11:19 PM [facility] AST (SGOT) 23 10 - 42 unit/L LAB CHEMISTRY METHOD 01/01/2025 11:19 PM [facility] ALT (SGPT) 53 10 - 60 unit/L LAB CHEMISTRY METHOD 01/01/2025 11:19 PM [facility] Alkaline Phosphatase 73 42 - 121 unit/L LAB CHEMISTRY METHOD 01/01/2025 11:19 PM [facility] Total Protein 8.0 6.0 - 8.0 g/dL LAB CHEMISTRY METHOD 01/01/2025 11:19 PM [facility] Albumin 4.4 3.2 - 5.0 g/dL LAB CHEMISTRY METHOD 01/01/2025 11:19 PM EDT [facility] Total Bilirubin 0.5 0.0 - 1.4 mg/dL LAB CHEMISTRY METHOD 01/01/2025 11:19 PM EDT [facility] Blood Venous blood specimen / Unknown Venipuncture / Unknown 01/01/2025 10:38 PM EDT 01/01/2025 10:46 PM EDT us Chetan Smith MD LAB BLOOD ORDERABLES Final Res ult [facility] [address] [place] [address], [place] [phone] from Last 3 Months Insurance MEDICAID - [place] Care Teams Transfer Knitter Relationship Specialty Start Date End Date Physician, Pcp Unknown PCP - General 01/02/25
--- OUTSIDE RECORDS SUMMARY | 2025-02-14 05:00 | XMS_ITS | Clinical Summary ---
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 [address] [place] [phone] Benjamin Broussard MD New patient appt. from Last 3 Months Social History Tobacco Use Types Packs/Day Years Used Date Smoking Tobacco: Never Assessed Sex and Gender Information Value Date Recorded Sex Assigned at Not on file Legal Sex Male 10:16 AM EST Gender Identity Not on file Sexual Orientation Not on file Plan of Treatment Upcoming Encounters Date Type Department Care Team (Late st Contact Info) Description 04/03/2025 9:15 AM EDT Office Visit [facility] [address] [place] [address] [phone] Fior Agudelo MD [address] [place] [phone] Health Maintenance Due Date Last Done Comments Depression Screening 1997 HIV Screening 1997 SDOH Screening 1997 Alcohol/Substance Use Screening 2009 Tobacco Screening 2009 Family Planning (PISQ) 2012 Hepatitis C Screening 2015 DTaP/Tdap/Td Vaccines (1 - Tdap) 2016 Hepatitis B Vaccines (1 of 3 - 19+ 3-dose series) 2016 COVID-19 Vaccine ( - 2023-2 5 season) 2024 Influenza Vaccine (#1) 2024 Zoster Vaccines (1 of 2) 2047 RSV Patients and Pa tients Aged 60 years or older (1 - 1-dose 75+ series) 2072 HIB Vaccines Aged Out No longer eligi [...] patient's age to complete this topic Meningococcal Vaccine Aged Out No mariam devon eligible based on patient's age to complete this topic Pneumococcal Vaccine: Pediat rics (0 to 5 Years) and At-Risk Patients (6 to 49) Years) Aged Out No longer eligible b ased on patient's age to complete this topic RSV under 20 months Aged Out No longe r eligible based on patient's age to complete this topic Rotavirus Vaccines Aged Out No longer eligible based on patient's age to complete this topic
[2025-02-14 05:16] LABS: MANUAL DIFF FLAG NO
[2025-02-14 05:18] LABS: Basophils Absolute Auto 0.1 X10*3/uL (0.0-0.2); Eosinophils Absolute Auto 0.9 X10*3/uL (0.0-0.4); Eosinophils Percent Auto 10.1 % (0-4); Hematocrit 42.5 % (42.0-52.0); Hemoglobin 14.8 g/dl (14.0-18.0); Imm Gran Abs Auto 0.03 X10*3/uL (0.00-0.03); Imm Gran Pct Auto 0.3 % (0.0-0.4); Lymphocytes Absolute Auto 2.9 X10*3/uL (1.2-4.9); Lymphocytes Percent Auto 32.6 % (20-40); Mean Corpuscular HGB Conc 34.8 g/dl (31.0-36.0); Mean Corpuscular Hemoglobin 28.6 pg (27.0-33.0); Mean Corpuscular Volume 82.2 fL (80.0-98.0); Mean Platelet Volume 9.4 fL (9.4-12.4); Monocytes Absolute Auto 0.6 X10*3/uL (0.1-1.2); Monocytes Percent Auto 6.1 % (2-11); Neutrophils Absolute Auto 4.5 x10*3/uL (2.0-8.3); Neutrophils Percent Auto 49.9 % (45-73); Platelet Count 280 X10*3/uL (160-400); Red Blood Count 5.17 X10*6/uL (4.60-5.80)
[2025-02-14 05:33] LABS: Alanine Aminotransferase 43 U/L (0-40); Albumin Level 4.3 g/dL (3.5-5.0); Alkaline Phosphatase 68 U/L (39-117); Anion Gap 13 (12-20); Aspartate Amino Transferase 27 U/L (5-37); Bilirubin Total 0.6 mg/dL (0.0-1.0); Blood Urea Nitrogen 15 mg/dL (9-16); Calcium 9.5 mg/dL (8.4-10.2); Carbon Dioxide 25 mmol/L (22-29); Chloride 104 mmol/L (96-108); Creatinine Clr Calc Pharmacy 137.6; Estimated Glomerular Filt Rate > 60; Glucose Random 112 mg/dL (60-115); Lipase 20 U/L (8-78); Sodium 138 mmol/L (135-145); Total Protein 7.6 g/dL (6.5-8.0)
--- NOTE | 2025-02-14 07:09 | ED_ITS ---
HPI - Abdominal Pain General Chief Complaint: Abdominal Pain Stated Complaint: abd pain Time Seen by Provider: 02/14/25 07:04 Source: patient Mode of arrival: ambulatory Limitations: no limitations History of Present Illness HPI narrative: This is a 29 years old male presented to the emergency department with a chief complaint of abdominal pain pain is localized in the right lower quadrant he has been ongoing for about year worse for the last 3 days there is no nausea vomiting or diarrhea. He was seen here in December [address] he had a negative [address] MD elicited complaint: abdominal pain Pertinent past history: none Onset (ago): day(s) (3 days worse) Pain Consistency: constant Severity: moderate Quality: cramping Radiation: RLQ Migration to: no migration Exacerbating factors: nothing Relieving factors: nothing Associated symptoms: denies other symptoms Related Data Previous Rx's ?Medication ?Instructions ?Recorded ondansetron 4 mg disintegrating 4 mg PO Q8H PRN nausea and 12/15/24 tablet vomiting #7 tabs oxycodone 5 mg tablet 5 mg PO Q8H PRN severe pain (scale 12/15/24 score 7-10) #5 tabs naproxen 500 mg tablet 500 mg PO BID #28 tabs 12/25/24 levofloxacin 500 mg tablet 500 mg PO DAILY 7 days #7 tabs 02/14/25 naproxen 500 mg tablet (Naprosyn) 500 mg PO BID PRN PAIN #20 tabs 02/14/25 Allergies Allergy/AdvReac Type Severity Reaction Status Date / Time No Known Allergies Allergy Verified 02/14/25 04:55 Review of Systems Constitutional: Reports no additional constitutional complaints Cardiovascular: Reports no additional cardiovascular complaints [facility] Past Medical History Attestation statement: The following information was validated with the patient. [facility] Narrative: denies Social History Social History Smoked in Last 30 Days: No Use of substances other than those prescribed or required for medical reasons: No Advance Directives: No Advance Directives Information Provided: Yes Physical Exam ED Vital Signs: Vital Signs - 24 hr 02/14/25 04:52 02/14/25 07:18 Temperature 97.9 F 98.2 F Pulse Rate 63 56 Respiratory Rate 16 18 Blood Pressure 130/86 Pulse Oximetry 100 100 Oxygen Delivery Method Room Air Room Air BMI result Body Mass Index 27.8 No acute distress comfortable in the stretcher Const General: cooperative Nutritional Appearance: well nourished Orientation/consciousness: patient oriented x3 HENMT Head: Yes normal to inspection General nose exam: Normal external nose present Neck Neck: Yes normal visual inspection Chest Chest palpation & inspection: normal inspection of the chest Resp Effort & Inspection: normal respiratory effort Auscultation: clear to auscultation bilaterally Cardio Jugular venous distension: no JVD Rate: regular rate Rhythm: regular rhythm GI Inspection: Yes normal to inspection Palpation (GI): Soft to palpation and Tenderness to palpation present (GI) (rt lower quadrant) Auscultation: normal bowel sounds Back/Spine/Pelvis Cervical Spine: normal cervical lordosis Neuro General: patient oriented x3 Cranial nerves: Yes CN's II-XII intact bilaterally Course Reevaluation(s) Reevaluation #1: On re-examination of the patient is doing better, workup has been completed CT showed a possible colitis but he has no fever he has a normal white count. I think he can be discharged home I will send him home on p.o. antibiotic and anti-inflammatory medication he is comfortable with the plan of care Time: 09:25 Medical Decision Making Medical Decision Making [facility] Narrative: Patient is here with a right lower quadrant abdominal pain we will obtain imaging and labs and reassessed 09:25 CT resulted ascending colitis okay to discharge home on pain medicine and p.o. antibiotic he has no fever he is normotensive he is not tachycardic Differential Diagnosis Differential Diagnoses: The differential diagnosis associated with the presentation includes Appendicitis/kidney stone/colitis Admission/Observation Consideration of admission/observation: Escalation of care including admission/observation considered Lab Data [facility] Lab Attestation statement: I reviewed the patient's lab results. 02/14/25 05:08 02/14/25 05:08 Labs: Lab Results 02/14/25 02/14/25 Range/Units 05:08 07:14 WBC 9.0 (4.8-10.8) X10*3/uL RBC 5.17 (4.60-5.80) X10*6/uL Hgb 14.8 (14.0-18.0) g/dl Hct 42.5 (42.0-52.0) % MCV 82.2 (80.0-98.0) fL MCH 28.6 (27.0-33.0) pg MCHC 34.8 (31.0-36.0) g/dl RDW 13.0 (11.0-16.0) % Plt Count 280 (160-400) X10*3/uL MPV 9.4 (9.4-12.4) fL Immature Gran % (Auto) 0.3 (0.0-0.4) % Neut % (Auto) 49.9 (45-73) % Lymph % (Auto) 32.6 (20-40) % Mariposa % (Auto) 6.1 (2-11) % Eos % (Auto) 10.1 H (0-4) % Baso % (Auto) 1.0 (0-2) % Lymph # (Auto) 2.9 (1.2-4.9) X10*3/uL [place] # (Auto) 0.6 (0.1-1.2) X10*3/uL Eos # (Auto) 0.9 H (0.0-0.4) X10*3/uL Baso # (Auto) 0.1 (0.0-0.2) X10*3/uL Abs Immat Gran (auto) 0.03 (0.00-0.03) X10*3/uL Absolute Neuts (auto) 4.5 (2.0-8.3) x10*3/uL Absolute Nucleated RBC 0.000 (0.0-0.012) X10*3/uL Nucleated RBC % (auto) 0.0 (0.0-0.2) /100WBC Sodium 138 (135-145) mmol/L Potassium 4.0 (3.3-5.1) mmol/L Chloride 104 (96-108) mmol/L Carbon Dioxide 25 (22-29) mmol/L Anion Gap 13 (12-20) BUN 15 (9-16) mg/dL Creatinine 0.91 (0.5-1.4) mg/dL Estim Creat Clear Calc 137.6 Estimated GFR > 60 Random Glucose 112 (60-115) mg/dL Calcium 9.5 D (8.4-10.2) mg/dL Total Bilirubin 0.6 (0.0-1.0) mg/dL AST 27 (5-37) U/L ALT 43 H (0-40) U/L Alkaline Phosphatase 68 (39-117) U/L Total Protein 7.6 (6.5-8.0) g/dL Albumin 4.3 (3.5-5.0) g/dL Lipase 20 (8-78) U/L Urine Color Yellow Urine Appearance Clear Urine pH 6.0 (5.0-9.0) Ur Specific Odd 1.025 (1.005-1.025) Urine Protein Negative (Neg-Trace) mg/dL Urine Glucose (UA) Negative (Negative) mg/dL Urine Ketones Negative (Negative) mg/dL Urine Blood Negative (Negative) Urine Nitrite Negative (Negative) Ur Leukocyte Esterase Negative (Negative) Independent Interpretation I performed an independent interpretation of an: CT Scan Interpretation: Colitis Radiology Impression Discussion of test interpretation with radiology: I have reviewed the radiologist's reading. Radiologist Impression: Colitis Medications Administered Discontinued Medications Generic Name Dose Route Start Last Admin Trade Name Freq PRN Reason Stop Dose Admin Iohexol 100 ml 02/14/25 08:12 02/14/25 08:15 Iohexol 350 Mg/Ml 100 Ml Infus..Btl IV 02/14/25 08:13 85 ml ONCE ONE Administration Ketorolac Tromethamine 15 mg 02/14/25 07:12 02/14/25 07:44 Ketorolac Tromethamine 15 Mg/Ml Vial IVPUSH 02/14/25 07:13 15 mg ONCE ONE Administration Discharge Plan Discharge Clinical Impression: Colitis Patient Disposition: Home, Self-Care Instructions: Colitis (ED) Additional Instructions: Follow-up at [facility], stay on liquid diet for 48 hours take antibiotic as directed, return to the emergency room if you worse Prescriptions: New levofloxacin 500 mg tablet 500 mg PO DAILY 7 Days Qty: 7 0RF naproxen [Naprosyn] 500 mg tablet 500 mg PO BID PRN (Reason: PAIN) Qty: 20 0RF No Action ondansetron 4 mg tablet,disintegrating 4 mg PO Q8H PRN (Reason: nausea and vomiting) Qty: 7 0RF oxycodone 5 mg tablet 5 mg PO Q8H PRN (Reason: severe pain (scale score 7-10)) Qty: 5 0RF Rx Instructions: Partial Fill upon patient request. naproxen 500 mg tablet 500 mg PO BID Qty: 28 0RF Print Language: Czech
[2025-02-14 07:18] VITALS: BP 130/86; PULSE 56; RESP 18; TEMP 36.8; O2SAT 100
[2025-02-14 07:26] LABS: Appearance Urine Clear; Color Urine Yellow; Glucose Urine UA Negative (Negative); Leukocyte Esterase Urine Negative (Negative); Nitrite Urine Negative (Negative); Specific Gravity - Urine 1.025 (1.005-1.025); Urine Blood Negative (Negative); Urine Ketones Negative (Negative); Urine Protein Negative (Neg-Trace)
[2025-02-14] MEDS: Ketorolac Tromethamine 15 MG/ML VIAL IVPUSH (07:44)
--- NOTE | 2025-02-14 07:48 | PC.NURSE ---
This RN assumed care of patient @ 0700. Patient is yakut speaking only, hourly sign language interpreter services called. Patient c/o of RLQ pain, rating it 10/10. Tordol administered effectiveness pending. 20G placed in RAC. Patient dressed in hospital attire. Plan of care on going
[2025-02-14] MEDS: iohexoL 350 MG/ML 100 ML INFUS..BTL IV (08:15)
[2025-02-14 10:07] VITALS: BP 124/80; PULSE 53; RESP 14; TEMP 36.2; O2SAT 100
[2025-02-14 10:36] VITALS: BP 124/80; PULSE 53; RESP 14; TEMP 36.2; O2SAT 100
== END 2025-02-14 10:37 | disposition home or self-care (01) ==
PROVIDERS: Emergency Provider Emergency Medicine
DX: K52.9 Noninfective gastroenteritis and colitis, unspecified (principal); R10.31 Right lower quadrant pain
CPT/HCPCS: 36415; 74177; 80053; 81003; 83690; 85025; 96374; 99284; J1885; Q9967

== ENCOUNTER → 2025-02-14 07:12 | Outpatient (BNV) | payer MEDICAID, SELFPAY | PROVIDERS: Emergency Provider Emergency Medicine; Visit Provider Radiology Diagnostic Radiology | DX: R10.31 Right lower quadrant pain (principal) | CPT/HCPCS: 74177 ==

== ENCOUNTER 2025-04-03 17:20 | Outpatient (REF) | payer MEDICAID, SELFPAY | END 2025-04-03 17:21 | disposition home or self-care (01) | LOC: HO.HHCLNP 17:20 | PROVIDERS: Visit Provider Student in an Organized Health Care Education/Training Program | DX: R10.10 Upper abdominal pain, unspecified (principal) | CPT/HCPCS: 83013 ==

== ENCOUNTER 2025-05-13 08:37 | Outpatient (REF) | payer MEDICAID, SELFPAY ==
--- OUTSIDE RECORDS SUMMARY | 2025-05-13 08:58 | XMS_ITS | Clinical Summary ---
Author Organization [facility] Address [address] [place] [address] Phone Care Team Providers Care [employer] Supervisor Name Role Phone Physician, Pcp Unknown Primary Care Provider Brianne vailable Allergies No known active allergies Social History Tobacco Use Types Packs/Day Years [...] 67 01/02/2025 1:07 AM EDT Temperature 36.8 C (98.2 F) 01/02/2025 1:07 AM EDT Respiratory Rate 18 01/02/2025 1:07 AM EDT [...] - 2023-2 5 season) 2024 Depression Screening 10/03/2024 HIV Screening 01/02/2025 Hepatitis C Screening 01/02/2025 Social Influencers of Health Screening 01/02/2025 Influenza Vaccine (#1) 2025 HIB Vaccines Aged Out No longer [...] 5 Years) and At-Risk Patients (6 to 49 Years) Aged Out No longer eligible b ased on patient's age to complete this topic RSV Immunization Patients Un eduard 20 months Aged Out No longer eligible b ased on patient's age to complete this topic Varicella Vaccines Aged Out No longer eligible based on patient's age to complete this topic Insurance MEDICAID - [place] Care Teams [employer] Supervisor Relationship Specialty Start Date End Date Physician, Pcp Unknown PCP - General 01/02/25
[2025-05-13 11:34] LABS: Hematocrit 46.0 % (42.0-52.0); Hemoglobin 15.4 g/dl (14.0-18.0); Mean Corpuscular HGB Conc 33.5 g/dl (31.0-36.0); Mean Corpuscular Hemoglobin 28.3 pg (27.0-33.0); Mean Corpuscular Volume 84.6 fL (80.0-98.0); NRBC Abs Auto 0.000 X10*3/uL (0.0-0.012); NRBC Pct Auto 0.0 /100WBC (0.0-0.2); Platelet Count 297 X10*3/uL (160-400); Red Blood Count 5.44 X10*6/uL (4.60-5.80); White Blood Count 7.8 X10*3/uL (4.8-10.8)
[2025-05-13 12:07] LABS: Alanine Aminotransferase 45 U/L (0-40); Albumin Level 4.7 g/dL (3.5-5.0); Alkaline Phosphatase 73 U/L (39-117); Anion Gap 13 (12-20); Aspartate Amino Transferase 30 U/L (5-37); Blood Urea Nitrogen 13 mg/dL (9-16); Calcium 9.4 mg/dL (8.4-10.2); Carbon Dioxide 28 mmol/L (22-29); Chloride 103 mmol/L (96-108); Cholesterol 184 mg/dL (<200); Estimated Glomerular Filt Rate > 60; HDL Cholesterol 35 mg/dL (>40); Potassium 4.3 mmol/L (3.3-5.1); Sodium 140 mmol/L (135-145); Total Protein 8.0 g/dL (6.5-8.0); Triglycerides 319 mg/dL (<150)
[2025-05-13 12:08] LABS: Syphilis Screen Nonreactive (Nonreactive)
[2025-05-13 12:26] LABS: Hemoglobin A1C 160.7759 umol/L; Total Hemoglobin (HGBA1C) 4006.1790 umol/L
[2025-05-13 12:47] LABS: HBS Num1 38.56 mIU/mL (0-7.99); HBc Num1 0.08 S/CO (0.00-0.79); HBsAGNum1 0.40 S/CO (0.00-0.99); HIV Num 1 0.07 S/CO (0.00-0.99); Hepatitis B Surface Antigen Negative (Negative); ~HepC Num1 0.11 S/CO (0.00-0.79); ~Hepatitis B Surface Antibody REACTIVE (Nonreactive); ~Hepatitis C Antibody Nonreactive (Nonreactive)
[2025-05-14 11:43] LABS: Rubeola IgG (Measles) 119.00 AU/mL
[2025-05-16 10:19] LABS: TS Negative Control Passed; TS Panel A 1; TS Panel B 1; TS Positive Control Passed; TSpotTB Negative (Negative)
== END 2025-05-13 08:38 | disposition home or self-care (01) ==
LOC: HO.HHCL 08:37
PROVIDERS: PCP Student in an Organized Health Care Education/Training Program; Visit Provider Student in an Organized Health Care Education/Training Program
DX: Z00.00 Encounter for general adult medical examination without abnormal findings (principal); R10.10 Upper abdominal pain, unspecified; Z11.4 Encounter for screening for human immunodeficiency virus [HIV]; Z11.59 Encounter for screening for other viral diseases; Z11.1 Encounter for screening for respiratory tuberculosis; Z13.1 Encounter for screening for diabetes mellitus
CPT/HCPCS: 36415; 80053; 80061; 83036; 84443; 85027; 86481; 86682; 86704; 86706; 86735; 86762; 86765; 86780; 86803; 87177; 87209; 87340; 87389